=== PATIENT | male | born 1995 | race Caucasian/White ===

== ENCOUNTER 2017-02-09 14:57 | Emergency (ER) | payer SELFPAY ==
[~2017-02-09] VITALS: Ht 175.2 cm; Wt 88.5 kg
[~2017-02-09 14:57] MED LIST: ADDERALL5 MG PO; AMOXIL500 M1 PO; KEFLEX500 MG PO
== END 2017-02-09 15:30 | disposition home or self-care (01) ==
LOC: ED 14:57
DX: S41.112A Laceration without foreign body of left upper arm, initial encounter (principal); Z79.899 Other long term (current) drug therapy; W45.8XXA Other foreign body or object entering through skin, initial encounter; Y93.89 Activity, other specified; Y92.89 Other specified places as the place of occurrence of the external cause; Y99.8 Other external cause status

== ENCOUNTER 2018-02-12 18:35 | Emergency (ER) | payer SELFPAY ==
[~2018-02-12] VITALS: Ht 170.1 cm; Wt 90.7 kg
[2018-02-12] MEDS ORDERED: NAPROSYN500 MG PO (18:48)
== END 2018-02-12 20:03 | disposition home or self-care (01) ==
LOC: ED 18:35
DX: S60.011A Contusion of right thumb without damage to nail, initial encounter (principal); R03.0 Elevated blood-pressure reading, without diagnosis of hypertension; W22.01XA Walked into wall, initial encounter; Y93.89 Activity, other specified; Y92.89 Other specified places as the place of occurrence of the external cause; Y99.8 Other external cause status

== ENCOUNTER 2018-12-17 09:24 | Emergency (ER) | payer SELFPAY ==
[~2018-12-17 09:24] MED LIST changes: +NAPROSYN500 MG PO
== END 2018-12-17 10:21 ==
LOC: ED 09:24
DX: T40.601A Poisoning by unspecified narcotics, accidental (unintentional), initial encounter (principal); R00.0 Tachycardia, unspecified; R06.3 Periodic breathing; R23.0 Cyanosis; Y92.89 Other specified places as the place of occurrence of the external cause

== ENCOUNTER 2019-04-15 17:59 | Emergency (ER) | payer OTHER ==
[~2019-04-15] VITALS: Ht 175.2 cm; Wt 104.3 kg
[2019-04-15 18:51] LABS: BILIRUBIN NEGATIVE (NEGATIVE); CLARITY CLEAR (CLEAR); COLOR YELLOW (YELLOW); GLUCOSE NEGATIVE (NEGATIVE); KETONE NEGATIVE (NEGATIVE)
[2019-04-15 18:52] LABS: BLOOD TRACE-INTACT (NEGATIVE); LEUKO ESTERASE NEGATIVE (NEGATIVE); NITRITE NEGATIVE (NEGATIVE); UROBILINOGEN 0.2 E.U./dl (0.2-1.0)
[2019-04-15 18:59] LABS: EPITHELIAL CELLS 0-2; WBC 0-2 wbc/hpf (0-5)
[2019-04-15 19:00] LABS: BACTERIA TRACE; MUCOUS 2+
== END 2019-04-15 19:06 | disposition home or self-care (01) ==
LOC: ED 17:59
PROVIDERS: Nurse Practitioner Family
DX: Z20.2 Contact with and (suspected) exposure to infections with a predominantly sexual mode of transmission (principal); R30.9 Painful micturition, unspecified; Z11.3 Encounter for screening for infections with a predominantly sexual mode of transmission